=== PATIENT | female | born 1945 | race Caucasian/White ===

== ENCOUNTER → 2016-11-27 | Outpatient (CLI) | payer MEDICARE, OTHER | END | disposition home or self-care (01) | LOC: LAB.O 10:04 | PROVIDERS: ATTEND Internal Medicine Endocrinology, Diabetes & Metabolism | DX: E20.9 Hypoparathyroidism, unspecified (principal); E03.9 Hypothyroidism, unspecified ==

== ENCOUNTER → 2016-11-29 | Outpatient (CLI) | payer MEDICARE, OTHER | END | disposition home or self-care (01) | LOC: LAB.O 08:43 | PROVIDERS: ATTEND Internal Medicine Endocrinology, Diabetes & Metabolism | DX: E20.9 Hypoparathyroidism, unspecified (principal); E03.9 Hypothyroidism, unspecified ==

== ENCOUNTER → 2017-04-04 | Outpatient (CLI) | payer MEDICARE, OTHER | END | disposition home or self-care (01) | LOC: LAB.O 08:34 | PROVIDERS: ATTEND Internal Medicine Endocrinology, Diabetes & Metabolism | DX: E20.9 Hypoparathyroidism, unspecified (principal); E03.9 Hypothyroidism, unspecified ==

== ENCOUNTER → 2017-06-06 | Outpatient (CLI) | payer MEDICARE, OTHER | END | disposition home or self-care (01) | LOC: LAB.O 08:51 | PROVIDERS: ATTEND Internal Medicine Endocrinology, Diabetes & Metabolism | DX: E03.9 Hypothyroidism, unspecified (principal) ==

== ENCOUNTER → 2017-09-02 | Outpatient (CLI) | payer MEDICARE, OTHER | END | disposition home or self-care (01) | LOC: LAB.O 08:51 | PROVIDERS: ATTEND Internal Medicine Endocrinology, Diabetes & Metabolism | DX: E03.9 Hypothyroidism, unspecified (principal); E20.9 Hypoparathyroidism, unspecified ==

== ENCOUNTER 2017-09-29 09:36 | Emergency (ER) | payer MEDICARE, OTHER ==
[2017-09-29 10:00] VITALS: TEMP 100.3
[2017-09-29] MEDS ORDERED: ADENOSINE INJ 6 MG/2 ML SYG IV ONE (10:08)
--- NOTE | 2017-09-29 10:18 | ED.PDOC ---
History of Present Illness - General Chief Complaint: Fever Stated Complaint: fever, cough Time Seen by Provider: 09/29/17 09:40 Source: patient, RN notes reviewed, Vital Signs reviewed, family - Exam Limitations: no limitations - History of Present Illness Initial Comments: Patient presents to ER with c/o cough for 2 days that worsened last night. + Body Aches and chills. Reports she did not take her medications yesterday and that the flu has caused her A. Fib to act up. She did take one Amiodirone 200mg PO this morning. has similar symptoms. Timing/Duration: 24 hours Severity: moderate Improving Factors: nothing Worsening Factors: nothing Associated Symptoms: cough, fever/chills, headaches, malaise Allergies/Adverse Reactions: Allergies Codeine Allergy (Verified 09/29/17 10:00) Penicillins Allergy (Verified 09/29/17 10:00) Sulfa Antibiotics Allergy (Verified 09/29/17 10:00) Home Medications: Ambulatory Orders Calcitriol 0.5 mcg PO 10/26/14 Citracal Plus 10/26/14 Levothyroxine Sodium 75 mcg PO 10/26/14 Lisinopril 20 mg PO 10/26/14 Meclizine HCl 25 mg PO Q6-8H PRN #30 tab 10/26/14 Omeprazole 10/26/14 Propranolol HCl ER 10/26/14 Simvastatin 10/26/14 amLODIPine BESYLATE [Norvasc] 10/26/14 Oseltamivir Capsule [Tamiflu] 75 mg PO BID #10 cap 09/29/17 Review of Systems - Review of Systems Constitutional: States: chills, fever, malaise EENTM: States: no symptoms reported Respiratory: States: cough. Denies: short of breath Cardiology: States: see HPI, palpitations. Denies: chest pain Gastrointestinal/Abdominal: States: constipation, nausea. Denies: abdominal pain, diarrhea, vomiting Musculoskeletal: States: muscle pain Skin: States: no symptoms reported Neurological: States: headache All other Systems: No Change from Baseline Past Medical History (General) - Patient Medical History Hx Cardiac Disorders: Yes - A-fib Hx Hypertension: Yes Hx Thyroid Disease: Yes Hx Gastroesophageal Reflux: Yes Surgical History: other - Vaccination History Hx Tetanus, Diphtheria Vaccination: No Hx Influenza Vaccination: No Hx Pneumococcal Vaccination: No - Social History Hx Alcohol Use: No Hx Substance Use: No Hx Substance Use Treatment: No - Female History Patient is a Female of Child Bearing Age (10 -59 yrs old): No Patient : No Family Medical History - Family History Mother Family History: Unknown Physical Exam - Physical Exam General Appearance: Alert, Ill Appearing, Well Developed, Well Groomed, Well Hydrated, Well Nourished Neck: full range of motion, supple, normal inspection Respiratory: lungs clear, normal breath sounds, no respiratory distress, no accessory muscle use Cardiovascular/Chest: no edema, no gallop, no JVD, no murmur, tachycardia Gastrointestinal/Abdominal: normal bowel sounds, soft, no organomegaly, no pulsatile mass, tenderness - mild diffuse tenderness Extremity: non-tender, normal inspection, no pedal edema Neurologic: alert, normal mood/affect, oriented x 3 Skin Exam: normal color, warm/dry Comments: Vital Signs 09/29/17 09:45 Temperature 100.3 F H Pulse Rate [ 103 H pulse ox] Respiratory 20 Rate Blood Pressure 115/69 [Left Arm] O2 Sat by Pulse 95 Oximetry Progress - Progress Progress: 09/29/17 10:49 Adenosine 6mg IV giving with minimal improvement. She normally takes Amiodirone 200mg PRN. She did take 200mg PO @ 07:30 today. She is written for 400mg daily. Will give Amiodirone 150mg IV. 09/29/17 10:57 Rapid Flu test is negative but patient has fever, cough and body aches. Also, there have been numerous + flu tests in the ER recently. Will treat imperically with Tamiflu. 09/29/17 11:21 Still in A. Fib but HR down to 100's. Feeling better. Patient agrees with plan to treat with Tamiflu. Also recommended she take her Amiodirone daily until she is feeling better. She is agreeable with plan. - Results/Orders Results/Orders: Influenza A&B: Negative - EKG/XRAY/CT EKG: Sinus, Tachy - Rate 186 - Hx of Atrial Fibrillation, nonspecific ST T wave Chg Departure - Departure Clinical Impression: Influenza, Atrial fibrillation with rapid ventricular response Time of Disposition: 11:23 Disposition: Discharge to Home or Self Care Condition: Good Departure Forms: ED Discharge - Pt. Copy, Patient Portal Self Enrollment Instructions: Influenza, DI for Atrial Fibrillation Diet: resume usual diet Activity: increase activity as tolerated Referrals: Theron Modi MD [Primary Care Provider] - 1-2 Weeks Prescriptions: Oseltamivir Capsule [Tamiflu] 75 mg PO BID #10 cap Home Medications: Ambulatory Orders Calcitriol 0.5 mcg PO 10/26/14 Citracal Plus 10/26/14 Levothyroxine Sodium 75 mcg PO 10/26/14 Lisinopril 20 mg PO 10/26/14 Meclizine HCl 25 mg PO Q6-8H PRN #30 tab 10/26/14 Omeprazole 10/26/14 Propranolol HCl ER 10/26/14 Simvastatin 10/26/14 amLODIPine BESYLATE [Norvasc] 10/26/14 Oseltamivir Capsule [Tamiflu] 75 mg PO BID #10 cap 09/29/17 Additional Instructions: Mucinex DM as needed for cough/congestion Take Amiodirone daily until feeling better Tylenol &/or Ibuprofen for fever and body aches Increase fluid intake.
[2017-09-29] MEDS ORDERED: AMIODARONE IV (LOAD) 150 MG in DEXTROSE 5% 100ML 100 ML IVPB ONE (10:47)
[2017-09-29] MEDS ORDERED: AMIODARONE HCL 150 MG/3 ML VIAL IVPB ONE (10:57)
[2017-09-29] MEDS ORDERED: DEXTROSE 5% 100ML 100 ML IVPB ONE (10:58)
[2017-09-29 11:58] VITALS: BP 108/69; O2SAT 95
== END 2017-09-29 11:45 | disposition home or self-care (01) ==
LOC: ER 09:36
DX: I48.91 Unspecified atrial fibrillation (principal); R00.0 Tachycardia, unspecified; J11.1 Influenza due to unidentified influenza virus with other respiratory manifestations; I10 Essential (primary) hypertension; E07.9 Disorder of thyroid, unspecified; K21.9 Gastro-esophageal reflux disease without esophagitis; Z79.899 Other long term (current) drug therapy; Z88.5 Allergy status to narcotic agent; Z88.2 Allergy status to sulfonamides; Z88.0 Allergy status to penicillin
CPT/HCPCS: 87804; 93005; J0153; J0282; J7060

== ENCOUNTER 2017-10-01 20:15 | Observation (INO) | payer MEDICARE, OTHER ==
--- NOTE | 2017-10-01 22:24 | RAD ---
EXAM DESCRIPTION: Chest,1 View CLINICAL HISTORY: hx a-fib COMPARISON: None. FINDINGS: There is mild atelectasis at the left lung base. There is slight bilateral pulmonary vascular engorgement. Cardiac silhouette is within normal limits. There is no additional focal parenchymal or pleural disease. Visualized osseous structures are within normal limits. IMPRESSION: Mild pulmonary vascular engorgement. 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
[2017-10-01] MEDS ORDERED: SODIUM CHLORIDE 0.9% 1000ML 1,000 ML IVS ONE (23:22)
--- NOTE | 2017-10-01 23:44 | ED.PDOC ---
History of Present Illness - General Chief Complaint: General Stated Complaint: Feel weak and like passing out Time Seen by Provider: 10/01/17 23:19 Source: patient Exam Limitations: no limitations - History of Present Illness Initial Comments: Leydi Rivas 72 y/o female stated that she felt that she was about to passed out 2 x about 1900 h tonight felt weak and feels heart was slowing down.She was diagnosed with viral illness and was placed on tamiflu Saturday.Had been coughing for one week and started with low grade fever last night.Has history of chronic a.fib /flutter on amniodarone and NOAC ,hypothyroidism. Timing/Duration: 4-6 hours Severity: moderate Improving Factors: nothing Worsening Factors: nothing Associated Symptoms: other - see hpi Allergies/Adverse Reactions: Allergies Codeine Allergy (Verified 10/01/17 21:18) Penicillins Allergy (Verified 10/01/17 21:18) Sulfa Antibiotics Allergy (Verified 10/01/17 21:18) Home Medications: Ambulatory Orders Citracal Plus 10/26/14 Levothyroxine Sodium 75 mcg PO DAILY 10/26/14 Lisinopril 20 mg PO DAILY 10/26/14 amLODIPine BESYLATE [Norvasc] 5 mg PO DAILY 10/26/14 Oseltamivir Capsule [Tamiflu] 75 mg PO BID #10 cap 09/29/17 Amiodarone HCl 200 mg PO DAILY 10/01/17 Apixaban [Eliquis] 5 mg PO DAILY 10/01/17 Aspirin [(None)] 325 mg PO QD 10/01/17 Calcitriol 0.25 mcg PO DAILY 10/01/17 Famotidine 20 mg PO DAILY 10/01/17 Review of Systems - Review of Systems Constitutional: States: no symptoms reported EENTM: States: no symptoms reported Respiratory: States: no symptoms reported Cardiology: States: see HPI Gastrointestinal/Abdominal: States: no symptoms reported Genitourinary: States: no symptoms reported Musculoskeletal: States: no symptoms reported Skin: States: no symptoms reported Neurological: States: see HPI Endocrine: States: no symptoms reported Past Medical History (General) - Patient Medical History Hx Cardiac Disorders: Yes - A-fib Hx Hypertension: Yes Hx Thyroid Disease: Yes Hx Gastroesophageal Reflux: Yes Surgical History: other - total thyroidectomy - Vaccination History Hx Tetanus, Diphtheria Vaccination: No Hx Influenza Vaccination: No Hx Pneumococcal Vaccination: No - Social History Hx Tobacco Use: No Hx Alcohol Use: No Hx Substance Use: No Hx Substance Use Treatment: No - Female History Patient : No Family Medical History - Family History Mother Family History: Unknown Hx Family;Other: ADOPTED Physical Exam - Physical Exam General Appearance: Alert, Comfortable, No apparent distress Eye Exam: bilateral normal Ears, Nose, Throat: hearing grossly normal, normal ENT inspection, normal pharynx Neck: non-tender, full range of motion, supple Respiratory: chest non-tender, no respiratory distress, wheezing - mild Cardiovascular/Chest: normal peripheral pulses, regular rate, rhythm, no murmur Peripheral Pulses: radial,right: 2+, radial,left: 2+ Gastrointestinal/Abdominal: normal bowel sounds, non tender, soft, no organomegaly Extremity: normal range of motion, non-tender, no pedal edema, no calf tenderness Neurologic: alert, oriented x 3 Skin Exam: normal color, warm/dry Lymphatic: no adenopathy Progress - Progress Progress: 10/02/17 00:01 Last Vital Signs Temp 98.1 F 10/01/17 21:09 Pulse 66 10/01/17 21:09 Resp 18 10/01/17 21:09 BP 140/80 10/01/17 21:09 Pulse Ox 97 10/01/17 21:09 - Results/Orders Results/Orders: Laboratory Tests 10/01/17 10/01/17 22:36 22:36 WBC 4.8 RBC 5.17 Hgb 15.0 Hct 44.0 MCV 85.0 MCH 28.9 MCHC 34.0 RDW 13.8 Plt Count 309 MPV 9.8 Absolute Neuts (auto) 2.70 Absolute Lymphs (auto) 1.40 Absolute Monos (auto) 0.70 Absolute Eos (auto) 0.00 Absolute Basos (auto) 0.00 Neutrophils % 56.2 Lymphocytes % 28.6 Monocytes % 13.6 H Eosinophils % 0.9 L Basophils % 0.7 Sodium 142 Potassium 3.8 Chloride 102 Carbon Dioxide 27 Anion Gap 16.8 BUN 12 Creatinine 0.92 BUN/Creatinine Ratio 13.0 Random Glucose 96 Serum Osmolality 282.7 Calcium 7.9 L Total Bilirubin 0.4 AST 37 ALT 23 Alkaline Phosphatase 39 L Serum Total Protein 7.3 Albumin 3.9 Globulin 3.4 Albumin/Globulin Ratio 1.1 - EKG/XRAY/CT EKG: Atrial, Flutter XRAY: chest - no consolidation,mild pulmonary engorgement CT Ordered: Yes - head no abnormalities noted Departure - Departure Clinical Impression: Syncope, near, Chronic atrial fibrillation, Hypocalcemia Time of Disposition: 01:01 Disposition: Admit Patient Condition: Fair Departure Forms: Patient Portal Self Enrollment Referrals: Theron Modi MD [Primary Care Provider] - 1-2 Weeks Home Medications: Ambulatory Orders Citracal Plus 10/26/14 Levothyroxine Sodium 75 mcg PO DAILY 10/26/14 Lisinopril 20 mg PO DAILY 10/26/14 amLODIPine BESYLATE [Norvasc] 5 mg PO DAILY 10/26/14 Oseltamivir Capsule [Tamiflu] 75 mg PO BID #10 cap 09/29/17 Amiodarone HCl 200 mg PO DAILY 10/01/17 Apixaban [Eliquis] 5 mg PO DAILY 10/01/17 Aspirin [(None)] 325 mg PO QD 10/01/17 Calcitriol 0.25 mcg PO DAILY 10/01/17 Famotidine 20 mg PO DAILY 10/01/17 Decision To Admit - Decistion To Admit Decision to Admit Reason: Admit from ER Decision to Admit Date: 10/02/17 - D/W Dr. Pardo Decision to Admit Time: 01:01
[2017-10-02] MEDS ORDERED: CALCIUM GLUCONATE INJ 1 GM in SODIUM CHLORIDE 0.9% 50ML 50 ML IVPB ONE (00:01)
--- NOTE | 2017-10-02 00:07 | CT ---
EXAM DESCRIPTION: Head CLINICAL HISTORY: syncope COMPARISON: None available TECHNIQUE: Axial CT of the head obtained from the skull apex to the skull base without contrast. FINDINGS: No acute intracranial hemorrhage identified. No mass, mass effect, shift of the midline, abnormal extra-axial fluid collection or CT evidence of acute ischemic change identified. The ventricular system and sulcal spaces are mildly enlarged compatible with mild cerebral atrophy. Scattered areas of hypodensity throughout the supratentorial white matter are nonspecific and may be related to chronic small vessel ischemic change. The visualized paranasal sinuses and the mastoids are clear. No skull fracture identified. Visualized orbits and globes are unremarkable. Atherosclerotic calcification of the intracranial internal carotid arteries. DLP:773.97 mGy-cm IMPRESSION: 1. No acute intracranial abnormality by CT criteria. This exam was performed according to our departmental dose-optimization program, which includes automated exposure control, adjustment of the mA and/or kV according to patient size and/or use of iterative reconstruction technique. Electronically signed by: Erwin Ellis 10/02/2017 12:05 AM [facility]
[2017-10-02] MEDS ORDERED: SODIUM CHLORIDE 0.9% 50ML 50 ML ONE (00:09)
[2017-10-02] MEDS ORDERED: CALCIUM GLUCONATE INJ 1 GM/10 ML VIAL ONE (00:09)
[2017-10-02] MEDS ORDERED: MAGNESIUM HYDROXIDE 30 ML UD PO PRN (01:14)
[2017-10-02] MEDS ORDERED: SODIUM CHLORIDE 0.9% (FLUSH) 10 ML SYG IV PRN (01:14)
[2017-10-02] MEDS ORDERED: HYDROcodone 5MG/APAP 325MG 1 EA TAB PO PRN (01:14)
[2017-10-02] MEDS ORDERED: ACETAMINOPHEN 325 MG TAB PO PRN (01:14)
[2017-10-02] MEDS ORDERED: SODIUM CHLORIDE 0.9% 1000ML 1,000 ML IVS PRN (01:14)
[2017-10-02] MEDS ORDERED: LEVALBUTEROL NEBS 0.63 MG/3 ML VIAL NEB PRN (01:14)
[2017-10-02] MEDS ORDERED: IV SET AND CAP CHANGE INJ INJ SCH (01:30)
[2017-10-02] MEDS ORDERED: ASPIRIN TABLET 325 MG TAB PO SCH (01:30)
--- NOTE | 2017-10-02 01:35 | HP ---
SUPERVISING PHYSICIAN: Juan Washington MD CHIEF COMPLAINT: Syncope, weakness. HISTORY OF PRESENT ILLNESS: Ms. Rivas is a 72-year-old, female patient who noted she felt like she was going to have a near syncopal episode around 1900 on the previous day and was weak and felt that her heart was slowing down. She was diagnosed recently with a viral illness and was started on Tamiflu. She has been having a cough and a low grade fever for the last 24 hours. Her significant history includes atrial fibrillation on amiodarone p.r.n. and hypothyroidism and hypoparathyroidism secondary to thyroidectomy. Her laboratory studies showed her white count to be normal at 4,800 with hemoglobin 15, hematocrit 44.0. Differential within normal limits. Chemistries showed normal electrolytes with a calcium level at 7.9 with liver functions all within normal limits. Albumin 3.9, magnesium 1.9, BNP 82, troponin 0.02. In the Emergency Department, because of the low calcium levels, she was initially given calcium gluconate 1 gram. The patient is already on Eliquis for her underlying atrial fibrillation. EKG showed she was in atrial fibrillation on arrival, but with a controlled ventricular rate. The patient was admitted for observation for telemetry and further monitoring and evaluation of her calcium levels and close monitoring of her telemetry. She was admitted in stable condition. PAST MEDICAL HISTORY: 1. Atrial fibrillation on Eliquis. 2. Hypothyroidism and hypoparathyroidism secondary to surgical removal. 3. History of thyroidectomy and parathyroidectomy. PAST SURGICAL HISTORY: CURRENT MEDICATIONS: 1. Multivitamins. 2. Citracal 0.5 tablet daily. 3. Tamiflu 75 mg b.i.d. 4. Levothyroxine 75 mcg daily. 5. Aspirin 81 mg daily. 6. Famotidine 20 mg daily. 7. Calcitrol 0.25 mcg daily. 8. Amiodarone 200 mg at bedtime as needed. 9. Lisinopril 20 mg daily. 10. Amlodipine 5 mg daily. 11. Eliquis 2.5 mg twice a day. ALLERGIES: CODEINE, PENICILLINS, SULFA ANTIBIOTICS. FAMILY HISTORY: The patient is adopted. 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 She has never smoked, does not drink. REVIEW OF SYSTEMS: CONSTITUTIONAL: Generalized weakness as noted in history of present illness. HEENT: Denies headaches, but had some nasal congestion. No sore throat, no vision changes, no earaches. RESPIRATORY: No reported cough, shortness of breath. CARDIOVASCULAR: As noted in history of present illness, syncopal episode. No reported chest pains. GASTROINTESTINAL: Denies nausea or vomiting. No diarrhea or constipation or bowel habit changes. GENITOURINARY: Denies dysuria, hematuria or other urinary symptoms. NEUROLOGIC: As noted in history of present illness, near syncopal episode. No neurologic deficits reported. No vision changes. PHYSICAL EXAMINATION: VITAL SIGNS: Initially in the Emergency Department, temperature 98.1. Pulse 66. Blood pressure 140/80. Respirations 18. Saturation 97% on room air. Admission weight was 68.5 kg. GENERAL: On admission to the Medical/Surgical Floor, the patient appears to be in no acute distress, resting comfortably and alert. HEENT: Tympanic membranes clear bilaterally. Oropharynx is pink, moist without any lesions. NECK: Supple, nontender with full range of motion. No jugular venous distention noted. CHEST: Lungs clear to auscultation bilaterally without any rhonchi, wheezes, or rales. CARDIOVASCULAR: Regular rate and rhythm without any appreciable murmurs, gallops, or rubs. ABDOMEN: Soft, nontender. Positive bowel sounds. EXTREMITIES: There is no cyanosis, clubbing or edema. NEUROLOGIC: Cranial nerves II-XII are grossly intact. Facial features are symmetrical. Extraocular movements are within normal limits. There is no nystagmus noted. LABORATORY: Initial CBC showed normal white count of 4,800 with hemoglobin 15, hematocrit 44.0, platelet count 309,000. Differential without left shift. Chemistries show normal electrolytes, BUN 12, creatinine 0.92, calcium low at 7.9, magnesium normal at 1.9. Liver functions within normal limits. Troponin 0.02. BNP 82. TSH normal at 4.87. Urinalysis was within normal limits. MICROBIOLOGY: There were no specimens submitted. RADIOLOGY: Chest x-ray in the Emergency Department per radiologic interpretation showed mild pulmonary vascular engorgement. CT head without contrast per radiologic interpretation showed no acute intracranial abnormalities by CT criteria were mentioned. EKG in the Emergency Department showed atrial fibrillation with a ventricular rate of 96. ASSESSMENT: 1. Near syncopal episode, uncertain etiology, probably secondary to recent administration of Tamiflu and a cardiac arrhythmia with the patient having a history of atrial fibrillation as well as exacerbated by low calcium levels. 2. Hypocalcemia with history of hypoparathyroidism on calcium supplements, possibly resulting in near syncopal episode and ongoing weakness. 3. History of atrial fibrillation with controlled ventricular rate on admission on Eliquis and amiodarone p.r.n. for transient palpitation. 4. Hypothyroidism on supplementation with normal TSH level. 5. Recent upper respiratory infection with influenza like illness, started on Tamiflu, possibly resulting in her syncopal episode. PLAN: The patient will be placed in observation for close telemetry. I will plan to repeat her laboratory studies to reevaluate a calcium level since she has already gotten a gram of calcium gluconate in the Emergency Room. We will also start her on Os-Shilo in efforts to augment her calcium levels with p.o. supplement. Given that she is having some increasing rates in her ventricular response, I will have her take her p.r.n. amiodarone and monitor closely. We will hopefully be able to discharge tomorrow after repeat laboratory studies and further evaluate her cardiac telemetry and her calcium levels. I have stopped her Tamiflu. We will anticipate length of stay to be 1 to 2 days. Until then, we will continue to monitor the patient closely and treat appropriately. Dr. Pardo is available for consultation. #[id number] [facility]
[2017-10-02] MEDS ORDERED: ASPIRIN (CHEWABLE) 81 MG TAB PO SCH (03:20)
[2017-10-02] MEDS: OMEPRAZOLE CAP 20 MG CAP PO SCH ×2 (06:04→06:05)
[2017-10-02] MEDS: APIXABAN 2.5 MG TAB PO SCH ×2 (08:39→21:00)
[2017-10-02] MEDS: amLODIPine BESYLATE 5 MG TAB PO SCH (08:39)
[2017-10-02] MEDS: CALCIUM CARBONATE-VITAMIN D 500 MG TAB PO SCH ×3 (08:39→21:01)
[2017-10-02] MEDS: LEVOTHYROXINE SODIUM 0.075 MG TAB PO SCH (08:39)
[2017-10-02] MEDS ORDERED: LISINOPRIL 10 MG TAB PO SCH ×2 (09:00→21:00)
[2017-10-02] MEDS ORDERED: NON-FORMULARY MEDICATION 1 EA MIS (Apixaban [Eliquis] 5 MG) PO SCH (09:00)
[2017-10-02] MEDS ORDERED: AMIODARONE HCL 200 MG TAB PO SCH (09:00)
[2017-10-02] MEDS ORDERED: CALCITRIOL 0.25 MCG CAP PO SCH ×2 (09:00→12:00)
[2017-10-02] MEDS: ASPIRIN (CHEWABLE) 81 MG TAB PO SCH (09:20)
[2017-10-02] MEDS ORDERED: FAMOTIDINE 20 MG TAB PO SCH (12:30)
[2017-10-02] MEDS ORDERED: AMIODARONE HCL 200 MG TAB ONE (14:00)
[2017-10-02] MEDS ORDERED: AMIODARONE HCL 200 MG TAB PO PRN (14:30)
[2017-10-02] MEDS ORDERED: AMIODARONE HCL 200 MG TAB PO ONE (14:30)
[2017-10-02] MEDS ORDERED: KCL 20MEQ/0.45% NS 1,000 ML IVS PRN (22:30)
[2017-10-02] MEDS ORDERED: SODIUM CHL 0.9% 100ML MINI-BAG 100 ML IVPB ONE (23:13)
[2017-10-02] MEDS ORDERED: cefTRIAXone SODIUM 2 GM in SODIUM CHL 0.9% 100ML MINI-BAG 100 ML IVPB SCH (23:30)
[2017-10-03] MEDS: LEVOTHYROXINE SODIUM 0.075 MG TAB PO SCH (08:44)
[2017-10-03] MEDS: ASPIRIN (CHEWABLE) 81 MG TAB PO SCH (08:44)
[2017-10-03] MEDS: APIXABAN 2.5 MG TAB PO SCH (08:44)
[2017-10-03] MEDS: CALCIUM CARBONATE-VITAMIN D 500 MG TAB PO SCH (08:44)
[2017-10-03] MEDS: amLODIPine BESYLATE 5 MG TAB PO SCH (08:44)
[2017-10-03] MEDS ORDERED: CALCITRIOL 0.25 MCG CAP PO SCH (09:30)
[2017-10-03] MEDS ORDERED: FAMOTIDINE 20 MG TAB ONE (09:48)
[2017-10-03 10:56] VITALS: BP 133/83; TEMP 97.7; O2SAT 94
[2017-10-03] MEDS ORDERED: FAMOTIDINE 20 MG TAB PO SCH (12:00)
== END 2017-10-03 11:46 | disposition home or self-care (01) ==
LOC: ER 20:15 → INTOOBSV 10-02 01:33 → MS 10-02 01:33
PROVIDERS: ADMIT Nurse Practitioner Family; ATTEND Nurse Practitioner Family
DX: R55 Syncope and collapse (principal); I48.2 Chronic atrial fibrillation; E83.51 Hypocalcemia; E89.0 Postprocedural hypothyroidism; E89.2 Postprocedural hypoparathyroidism; Z79.01 Long term (current) use of anticoagulants; Z79.82 Long term (current) use of aspirin; Z79.899 Other long term (current) drug therapy; Z88.0 Allergy status to penicillin; Z88.2 Allergy status to sulfonamides; Z88.6 Allergy status to analgesic agent
CPT/HCPCS: 36415 ×6; 70450; 71010; 80053 ×2; 81001 ×2; 82040; 82310; 83735; 83880; 84443; 84484; 85025; 87086; 87088; 87186; 93005 ×2; 94760 ×4; 96361; 96365; 96375; 99284; A4216; G0378; J0696; J3480; J7030 ×2; J7050

== ENCOUNTER → 2017-10-16 | Outpatient (CLI) | payer MEDICARE, OTHER | END | disposition home or self-care (01) | LOC: LAB.O 14:32 | PROVIDERS: ATTEND Internal Medicine Endocrinology, Diabetes & Metabolism | DX: E20.9 Hypoparathyroidism, unspecified (principal); E87.6 Hypokalemia ==

== ENCOUNTER → 2017-12-02 | Outpatient (CLI) | payer MEDICARE, OTHER | LOC: LAB.O 09:23 | PROVIDERS: ATTEND Internal Medicine Endocrinology, Diabetes & Metabolism | DX: E03.9 Hypothyroidism, unspecified (principal); I48.91 Unspecified atrial fibrillation ==

== ENCOUNTER → 2018-04-14 | Outpatient (CLI) | payer MEDICARE, OTHER | LOC: LAB.O 09:28 | PROVIDERS: ATTEND Internal Medicine Endocrinology, Diabetes & Metabolism | DX: E87.6 Hypokalemia (principal); E20.9 Hypoparathyroidism, unspecified ==

== ENCOUNTER → 2018-10-24 | Outpatient (CLI) | payer MEDICARE, OTHER | LOC: LAB.O 09:23 | PROVIDERS: ATTEND Internal Medicine Endocrinology, Diabetes & Metabolism | DX: E03.9 Hypothyroidism, unspecified (principal); E20.9 Hypoparathyroidism, unspecified ==

== ENCOUNTER → 2019-01-20 | Outpatient (CLI) | payer MEDICARE, OTHER | LOC: LAB.O 09:25 | PROVIDERS: ATTEND Internal Medicine Endocrinology, Diabetes & Metabolism | DX: E03.9 Hypothyroidism, unspecified (principal) ==

== ENCOUNTER → 2019-04-27 | Outpatient (CLI) | payer MEDICARE, OTHER | LOC: LAB.O 08:47 | PROVIDERS: ATTEND Internal Medicine Endocrinology, Diabetes & Metabolism | DX: E03.9 Hypothyroidism, unspecified (principal); E20.9 Hypoparathyroidism, unspecified ==

== ENCOUNTER → 2019-10-21 | Outpatient (CLI) | payer MEDICARE, OTHER | LOC: LAB.O 10:12 | PROVIDERS: ATTEND Internal Medicine Endocrinology, Diabetes & Metabolism | DX: E03.9 Hypothyroidism, unspecified (principal); E20.9 Hypoparathyroidism, unspecified ==

== ENCOUNTER 2019-12-02 16:36 | Emergency (ER) | payer MEDICARE, OTHER ==
--- NOTE | 2019-12-02 17:07 | ED.PDOC ---
History of Present Illness - General Chief Complaint: GI Problem Stated Complaint: diarrhea,weakness Time Seen by Provider: 12/02/19 16:58 - History of Present Illness Initial Comments: 74 yo F PMH HTN SVT Lung Cancer recent treatment for UTI presents to ED at bedside c/o abdominal pain diarrhea dehydration generalized weakness. Denies blood in stool denies fever chills nausea vomiting admits diarrhea denies chest pain sob diaphoresis. Admits decreased appetite and disturbed rest no change in bladder. Denies drinking or smoking has PMD for follow up adopted and does not know FH no other c/o today. Review of Systems - Review of Systems Constitutional: States: see HPI EENTM: States: see HPI Respiratory: States: see HPI Cardiology: States: see HPI Gastrointestinal/Abdominal: States: see HPI Genitourinary: States: see HPI Musculoskeletal: States: see HPI Skin: States: see HPI Neurological: States: see HPI Endocrine: States: see HPI Hematologic/Lymphatic: States: see HPI All other Systems: Reviewed and Negative Past Medical History (General) - Patient Medical History Hx Seizures: No Hx Stroke: No Hx Asthma: No Hx of COPD: No Hx Cardiac Disorders: Yes - Atrial fib Hx Congestive Heart Failure: No Hx Pacemaker: No Hx Hypertension: Yes Hx Thyroid Disease: Yes Hx Diabetes: No Hx Gastroesophageal Reflux: Yes Hx Cancer: Yes - Lung Hx MRSA: No - Vaccination History Hx Tetanus, Diphtheria Vaccination: No Hx Influenza Vaccination: Yes Hx Pneumococcal Vaccination: Yes - Social History Hx Tobacco Use: No Hx Alcohol Use: No Hx Substance Use: No Hx Substance Use Treatment: No Hx Physical Abuse: No Hx Emotional Abuse: No - Female History Patient : No Family Medical History - Family History Father Family History: Unknown Hx Family;Other: ADOPTED Mother Family History: Unknown Hx Family;Other: ADOPTED Physical Exam - Physical Exam General Appearance: No apparent distress Eyes, Ears, Nose, Throat Exam: normal ENT inspection Neck: non-tender, full range of motion Respiratory: normal breath sounds Cardiovascular/Chest: tachycardia Gastrointestinal/Abdominal: non tender, soft Pelvic Exam: other - deferred Rectal Exam: deferred Back Exam: normal inspection Extremity: normal range of motion, non-tender Neurologic: no motor/sensory deficits Skin Exam: warm/dry Progress - Progress Progress: 12/02/19 17:16 A/P-C Diff Colitis, Dehydration, Generalized Weakness Fatigue Abdominal Pain Diarrhea-iv bolus ekg cxr cbc cmp lipase trop director of cardiac rehabilitation pulse ox contact precautions ua blood cultures iv vancomycin po flagyl reassess 12/02/19 18:03 Laboratory Tests 12/02/19 12/02/19 12/02/19 17:05 17:05 17:05 WBC 18.7 H RBC 4.74 Hgb 13.5 Hct 40.4 MCV 85.2 MCH 28.4 MCHC 33.3 RDW 14.2 Plt Count 429 H MPV 9.2 Absolute Neuts (auto) 16.50 H Absolute Lymphs (auto) 1.00 Absolute Monos (auto) 1.10 H Absolute Eos (auto) 0.00 Absolute Basos (auto) 0.10 Neutrophils % 88.3 H Lymphocytes % 5.1 L Monocytes % 5.9 Eosinophils % 0.2 L Basophils % 0.5 PT 10.4 INR 1.05 PTT (SP) 27.6 Sodium 141 Potassium 3.7 Chloride 103 Carbon Dioxide 25 Anion Gap 16.7 BUN 15 Creatinine 1.09 BUN/Creatinine Ratio 13.8 Random Glucose 127 H Serum Osmolality 283.7 Lactic Acid Calcium 8.7 Total Bilirubin 0.7 AST 20 ALT 15 Alkaline Phosphatase 52 Troponin I Serum Total Protein 7.8 Albumin 3.9 Globulin 3.9 H Albumin/Globulin Ratio 1.0 L Lipase 38 12/02/19 12/02/19 17:05 17:05 WBC RBC Hgb Hct MCV MCH MCHC RDW Plt Count MPV Absolute Neuts (auto) Absolute Lymphs (auto) Absolute Monos (auto) Absolute Eos (auto) Absolute Basos (auto) Neutrophils % Lymphocytes % Monocytes % Eosinophils % Basophils % PT INR PTT (SP) Sodium Potassium Chloride Carbon Dioxide Anion Gap BUN Creatinine BUN/Creatinine Ratio Random Glucose Serum Osmolality Lactic Acid 1.5 Calcium Total Bilirubin AST ALT Alkaline Phosphatase Troponin I 0.06 H Serum Total Protein Albumin Globulin Albumin/Globulin Ratio Lipase Add Dx-elevated troponin, Leukocytosis 12/02/19 18:39 EXAM DESCRIPTION: Abdomen 1 View CLINICAL HISTORY: 74 years Female ,diarrhea COMPARISON: None. TECHNIQUE: Single view of the abdomen was provided.. FINDINGS:Upper abdomen incompletely included on the image. No dilated loops of bowel to suggest obstruction. Vascular calcification in the pelvis. IMPRESSION: No acute plain film abnormality is identified. Electronically signed by: Juliana Horton MD 12/02/2019 6:[address] Lawson accepts at 06:38p and Dr. Junior of Cardiology will see patient - Results/Orders Results/Orders: EKG-non specific TW changes Sinus Tachycardia 100bpm Departure - Departure Clinical Impression: C. difficile colitis, Elevated troponin, Generalized weakness, Dehydration Leukocytosis Qualifiers: Leukocytosis type: unspecified Qualified Code(s): D72.829 - Elevated white blood cell count, unspecified Fatigue Qualifiers: Fatigue type: unspecified Qualified Code(s): R53.83 - Other fatigue Disposition: Transfer to Hospital Condition: Fair Departure Forms: ED Discharge - Pt. Copy, Patient Portal Self Enrollment Referrals: Theron Modi MD [Primary Care Provider] - 1-2 Weeks Home Medications: Ambulatory Orders Levothyroxine Sodium 75 mcg PO DAILY 10/26/14 Lisinopril 20 mg PO BEDTIME 10/26/14 Famotidine 20 mg PO DAILY@1200 10/01/17 Aspirin [Adult Aspirin Regimen] 81 mg PO DAILY 10/02/17 Ascorbic Acid [Vitamin C] 1,000 mg PO DAILY 12/02/19 Calcitriol 0.25 mcg PO DAILY@1200 12/02/19 Calcium Carbonate-Vitamin D [Calcium 600+D 600-200 mg-Unit] 1 tab PO DAILY 12/02/19 Cholecalciferol [Vitamin D3] 2,000 unit PO DAILY 12/02/19 Diltiazem HCl [Diltiazem HCl ER] 240 mg PO DAILY 12/02/19 Diphenoxylate/Atropine [Lomotil Tab] 2.5 mg PO PRN 12/02/19 metroNIDAZOLE [Flagyl] 500 mg PO TID 12/02/19 Transfer to Outside Facility - Transfer Information Decision to Transfer Date: 12/02/19 - Dr. Lawson ER to ER Decision to Transfer Time: 18:42 Reason for Transfer: specialized care not available Accepting Facility: [facility]
[2019-12-02] MEDS ORDERED: SODIUM CHLORIDE 0.9% 250ML 250 ML ONE (17:11)
[2019-12-02] MEDS ORDERED: VANCOMYCIN HCL INJ 1,000 MG VIAL IVPB ONE (17:11)
[2019-12-02] MEDS: metroNIDAZOLE 500 MG TAB PO ONE (17:42)
[2019-12-02] MEDS: VANCOMYCIN HCL INJ 1,000 MG in SODIUM CHLORIDE 0.9% 250ML 250 ML IVPB ONE (18:27)
--- NOTE | 2019-12-02 18:33 | RAD ---
EXAM DESCRIPTION: Abdomen 1 View CLINICAL HISTORY: 74 years Female ,diarrhea COMPARISON: None. TECHNIQUE: Single view of the abdomen was provided.. FINDINGS:Upper abdomen incompletely included on the image. No dilated loops of bowel to suggest obstruction. Vascular calcification in the pelvis. IMPRESSION: No acute plain film abnormality is identified. Electronically signed by: Juliana Horton MD 12/02/2019 6:31 PM [employer]
[2019-12-02] MEDS: ASPIRIN (CHEWABLE) 81 MG TAB PO ONE (18:45)
[2019-12-02 19:19] VITALS: BP 114/58; TEMP 99.6; O2SAT 94
== END 2019-12-02 19:22 | disposition short-term general hospital (02) ==
LOC: ER 16:36
DX: A04.72 Enterocolitis due to Clostridium difficile, not specified as recurrent (principal); R79.89 Other specified abnormal findings of blood chemistry; E86.0 Dehydration; R53.1 Weakness; R53.83 Other fatigue; R00.0 Tachycardia, unspecified; I10 Essential (primary) hypertension; I48.91 Unspecified atrial fibrillation; E07.9 Disorder of thyroid, unspecified; K21.9 Gastro-esophageal reflux disease without esophagitis; Z85.118 Personal history of other malignant neoplasm of bronchus and lung; Z79.82 Long term (current) use of aspirin; Z79.899 Other long term (current) drug therapy; Z87.440 Personal history of urinary (tract) infections
CPT/HCPCS: 36415; 74018; 80053; 83605; 83690; 84484; 85025; 85610; 85730; 87040; 93005; J3370; J7050

== ENCOUNTER → 2020-06-15 | Outpatient (CLI) | payer MEDICARE, OTHER ==
--- NOTE | 2020-06-16 10:32 | RAD ---
EXAM DESCRIPTION: Chest x-ray,2 Views CLINICAL HISTORY: COUGH COMPARISON: Previous chest x-ray October 01, 2017 TECHNIQUE: PA/lateral FINDINGS: Infiltrate in the right upper lobe and right perihilar region is consistent with pneumonia. There may be an azygos lobe. Right hemidiaphragm is elevated. Infiltrative changes on the right are new compared to previous. Discoid atelectasis in the lingula and left lower lobe. Left upper lobe apical region appears clear. Heart size is normal with normal pulmonary vascularity. No pleural effusion or pneumothorax. Lateral view shows intact sternum and spurring in the T-spine. IMPRESSION: Right pulmonary infiltration consistent with pneumonia. Electronically signed by: Steve Nevarez MD 06/16/2020 10:30 AM CDT
== END ==
LOC: RAD 15:43
PROVIDERS: ATTEND Internal Medicine
DX: R91.8 Other nonspecific abnormal finding of lung field (principal); R05 Cough

== ENCOUNTER → 2020-07-12 | Outpatient (CLI) | payer MEDICARE, OTHER | LOC: LAB.O 09:04 | PROVIDERS: ATTEND Internal Medicine Endocrinology, Diabetes & Metabolism | DX: E03.9 Hypothyroidism, unspecified (principal); E20.9 Hypoparathyroidism, unspecified ==